=== PATIENT | female | born 1945 | race Caucasian/White ===

== ENCOUNTER → 2016-10-04 | Outpatient (CLI) | payer OTHER | LOC: GMAB 17:13 | PROVIDERS: ATTEND Family Medicine | DX: L03.116 Cellulitis of left lower limb (principal); S81.832A Puncture wound without foreign body, left lower leg, initial encounter ==

== ENCOUNTER → 2016-10-11 | Outpatient (CLI) | payer OTHER ==
--- NOTE | 2016-10-11 14:47 | RAD ---
EXAM DESCRIPTION: XR KNEE 4 OR MORE VIEWS CLINICAL HISTORY: 70 y/o ,F, PAIN IN LEFT KNEE COMPARISON: None. IMPRESSION: Tricompartment degenerative change with joint space loss and osteophyte formation noted. This is most pronounced within the medial compartment of left knee. Negative for fracture. Small joint effusion noted period Electronically signed by: Marko Worthington MD 10/11/2016 14:45
--- NOTE | 2016-10-12 09:43 | RAD ---
EXAM DESCRIPTION: Pelvis series. CLINICAL HISTORY: Pelvic pain. COMPARISON: August 11, 2016. TECHNIQUE: One view was submitted for evaluation. FINDINGS: Degenerative change of the pubic symphysis and lumbar spine. No fracture, dislocation, or radiopaque foreign body is seen. Pelvic ring appears intact. Soft tissues are unremarkable. IMPRESSION: Symmetrical joint spaces within bilateral hips. No definitive evidence of osseous degenerative change of bilateral hips. Electronically signed by: Marko Worthington MD 10/12/2016 09:41
== END | disposition home or self-care (01) ==
LOC: RAD 13:49
PROVIDERS: ATTEND Orthopaedic Surgery
DX: M25.562 Pain in left knee (principal); M25.551 Pain in right hip

== ENCOUNTER → 2016-10-31 | Outpatient (CLI) | payer OTHER | END | disposition home or self-care (01) | LOC: LAB.O 15:10 | PROVIDERS: ATTEND Orthopaedic Surgery | DX: Z01.818 Encounter for other preprocedural examination (principal) ==

== ENCOUNTER 2016-12-28 05:29 | Inpatient (IN) | payer OTHER ==
--- NOTE | 2016-11-14 08:38 | HP ---
CHIEF COMPLAINT: Left knee pain. HISTORY OF PRESENT ILLNESS: Ms. Henry is a 70-year-old female with a history of left knee pain that has been going on for a very long time. Ms. Henry has had right total knee replacement and has had successful results with that. To that end, she would like to pursue left total knee replacement. After discussing the risks, benefits and alternatives to that with her, the patient has given informed consent. She has attempted multiple conservative measures, she has failed to gain relief with those measures. PAST SURGICAL HISTORY: 1. Knee replacement. 2. section. CODE STATUS: Full code. IMMUNIZATIONS: Up to date. SOCIAL HISTORY: The patient does not drink, smoke or use any illicit drugs at this time. FAMILY HISTORY: None pertinent to today's complaint. REVIEW OF SYSTEMS: Negative except as indicated in the History of Present Illness. PHYSICAL EXAMINATION: VITAL SIGNS: Blood pressure 170/90. Pulse 66. Height 5'8". Weight 218. MENTAL STATUS: The patient is awake, alert, and is able to give a good history and participate in the physical. The patient is oriented to person, place and time. SKIN: Normal tone and turgor. HEENT: Normocephalic, atraumatic. Pupils equal, round and reactive. Mucosal membranes are moist. NECK: Normal range of motion. No thyromegaly, no lymphadenopathy. CHEST: Normal respiratory excursion. CARDIAC: Regular rate and rhythm. No murmurs, rubs or gallops. MUSCULOSKELETAL: The bilateral upper extremities show full active range of motion without significant pain. She has intact sensation in the extremities and they are warm and well perfused. She maintains 5/5 strength throughout. The right lower extremity shows a well-healed scar anteriorly. She has intact sensation. It is warm and well perfused. There is no ligamentous laxity. The left lower extremity shows severe pain with palpation of the knee joint. Sensation is intact. It is warm and well perfused. She has no swelling. There is no evidence of laxity. There is minor crepitus. She has no obvious effusion at this time. IMAGING: X-rays show severe arthritis of the knee. ASSESSMENT: 1. Arthritis. PLAN: At this point, given her failure of conservative measures and the severity of her arthritis, we discussed options which for her would include a total knee arthroplasty. She has elected to undergo total knee arthroplasty. We have discussed the risks, benefits and alternatives to that and she has given informed consent for that. #[id number] [facility]
--- NOTE | 2016-12-27 12:28 | HP ---
CHIEF COMPLAINT: Left knee pain. HISTORY OF PRESENT ILLNESS: Ms. Henry is a 70-year-old female with a history of pain in the left knee that has been going on for a very long time and getting worse over the past years. She has had right total knee replacement and is requesting left total knee replacement. After discussing the risks, benefits and alternatives to that, the patient has given informed consent. Ms. Henry has failed conservative measures. Her conservative measures have included injections, physical therapy, assistive devices, and activity modifications. PAST SURGICAL HISTORY: 1. Knee replacement. 2. section. CODE STATUS: Full code. IMMUNIZATIONS: Up to date. SOCIAL HISTORY: The patient does not drink, smoke or use any illicit drugs. FAMILY HISTORY: None pertinent to today's complaint. REVIEW OF SYSTEMS: Negative except as indicated in the History of Present Illness. PHYSICAL EXAMINATION: VITAL SIGNS: Blood pressure 170/90. Pulse 66. Height 5'8". Weight 218. MENTAL STATUS: The patient is awake, alert, and is able to give a good history and participate in the physical. The patient is oriented to person, place and time. SKIN: Normal tone and turgor. HEENT: Normocephalic, atraumatic. Pupils equal, round and reactive. Mucosal membranes are moist. NECK: Normal range of motion. No thyromegaly, no lymphadenopathy. CHEST: Normal respiratory excursion. CARDIAC: Regular rate and rhythm. No murmurs, rubs or gallops. MUSCULOSKELETAL: Bilateral upper extremities show full active range of motion without pain. She has intact sensation. The extremities are warm and well perfused. There is no crepitus and no deformity. Strength is 5/5. The right lower extremity shows well-healed scar anteriorly. She has intact sensation throughout. There is no varus/valgus or anterior/posterior laxity. She has full extension with flexion to about 115 degrees. The left lower extremity shows severe pain with palpation. She has intact sensation throughout. It is warm and well perfused. Strength is 5/5. She has near full extension and flexion to about 105 degrees with crepitus throughout her range of motion. IMAGING: X-rays show advanced arthritis. ASSESSMENT: 1. Osteoarthritis. PLAN: The plan at this point is for total knee arthroplasty. We have discussed the risks, benefits, and alternatives to that and the patient has given informed consent. #[id number] [facility]
[2016-12-28] MEDS ORDERED: TRANEXAMIC ACID 1,000 MG/10 ML VIAL ONE ×2 (06:39)
[2016-12-28] MEDS ORDERED: LACTATED RINGERS 1,000 ML ONE ×2 (06:40→08:45)
[2016-12-28] MEDS ORDERED: ceFAZolin SODIUM 1 GM VIAL ONE ×4 (06:40→20:06)
[2016-12-28] MEDS ORDERED: SODIUM CHL 0.9% 100ML MINI-BAG 100 ML IVPB ONE ×2 (06:41→07:28)
[2016-12-28] MEDS ORDERED: VANCOMYCIN HCL INJ 1,000 MG VIAL IVPB ONE ×4 (06:48→20:06)
[2016-12-28] MEDS ORDERED: SODIUM CHLORIDE 0.9% 250ML 250 ML ONE ×2 (06:48→20:05)
[2016-12-28] MEDS ORDERED: SODIUM CHLORIDE 0.9% 10 ML VIAL ONE (06:49)
[2016-12-28] MEDS ORDERED: MORPHINE SULF *EPIDURAL* 1 MG/ML VIAL ONE (08:44)
[2016-12-28] MEDS ORDERED: LABETALOL 200 MG TAB ONE (09:00)
[2016-12-28] MEDS ORDERED: NITROGLYCERIN 2% 1 GM UD TOP ONE (09:00)
[2016-12-28] MEDS ORDERED: PROPOFOL 200 MG/20 ML VIAL IV ONE (09:00)
[2016-12-28] MEDS ORDERED: TRANEXAMIC ACID 1,000 MG/10 ML VIAL IV ONE (09:40)
[2016-12-28] MEDS ORDERED: BUPIVACAINE 0.25% W/EPI 50 ML VIAL INJ ONE (09:48)
[2016-12-28] MEDS ORDERED: [UNRECOGNIZED DRUG - MIXTURE] IVPB SCH (12:30)
[2016-12-28] MEDS ORDERED: HYDROmorphone PCA 0.2 MG/ML 1 BAG BAG IVPB SCH (12:30)
[2016-12-28] MEDS ORDERED: HYDROmorphone PCA 0.2 MG/ML 1 BAG BAG IVPB ONE (12:37)
[2016-12-28] MEDS ORDERED: MORPHINE SULFATE INJ 10 MG/ML VIAL IV PRN (12:53)
[2016-12-28] MEDS ORDERED: NALOXONE HCL INJ 0.4 MG/ML VIAL IV PRN (12:53)
[2016-12-28] MEDS ORDERED: PROMETHAZINE HCL INJ 12.5 MG in SODIUM CHLORIDE 0.9% 50ML 50 ML IVPB PRN (12:53)
[2016-12-28] MEDS ORDERED: ALUMINUM & MAGNESIUM HYDROXIDE 30 ML UD PO PRN (12:53)
[2016-12-28] MEDS ORDERED: ZOLPIDEM TARTRATE 5 MG TAB PO PRN (12:53)
[2016-12-28] MEDS ORDERED: PROMETHAZINE HCL INJ 25 MG in SODIUM CHLORIDE 0.9% 50ML 50 ML IVPB PRN (12:53)
[2016-12-28] MEDS ORDERED: MAGNESIUM HYDROXIDE 30 ML UD PO PRN (12:53)
[2016-12-28] MEDS ORDERED: TRANEXAMIC ACID INJ 1,000 MG in SODIUM CHLORIDE 0.9% 100ML 100 ML IVPB ONE (12:53)
[2016-12-28] MEDS ORDERED: TEMAZEPAM 15 MG CAP PO PRN (12:53)
[2016-12-28] MEDS ORDERED: ONDANSETRON INJ 4 MG/2 ML VIAL IV PRN (12:53)
[2016-12-28] MEDS ORDERED: ACETAMINOPHEN 325 MG TAB PO PRN (12:53)
[2016-12-28] MEDS ORDERED: BISACODYL SUPPOSITORY 10 MG PR PRN (12:53)
[2016-12-28] MEDS ORDERED: MORPHINE SULFATE INJ 10 MG/ML VIAL IM PRN (12:53)
[2016-12-28] MEDS ORDERED: SODIUM CHLORIDE 0.9% (FLUSH) 10 ML SYG IV PRN (12:53)
[2016-12-28] MEDS ORDERED: BENZOCAINE-MENTH LOZ (CEPACOL) 1 EA LOZ MT PRN (12:53)
[2016-12-28] MEDS ORDERED: ACETAMINOPHEN 500 MG TAB PO PRN (12:53)
[2016-12-28] MEDS ORDERED: MORPHINE PCA 1 MG/ML 100ML 1 BAG in PREMIX BAG 1 BAG IVPB SCH (13:00)
[2016-12-28] MEDS: DEX 5% W/NACL 0.45% 1000ML 1,000 ML IVS PRN ×2 (13:45→20:18)
[2016-12-28] MEDS: IV SET AND CAP CHANGE INJ INJ SCH (15:00)
[2016-12-28] MEDS ORDERED: SODIUM CHLORIDE 0.9% 100ML 100 ML IVPB ONE ×2 (20:03→20:06)
[2016-12-28] MEDS ORDERED: ENOXAPARIN SODIUM 30 MG/0.3 ML SYG SUBCU ONE (20:06)
[2016-12-28] MEDS: ceFAZolin SODIUM 2 GM in SODIUM CHLORIDE 0.9% 100ML 100 ML IVPB SCH (20:15)
[2016-12-28] MEDS: CYCLOBENZAPRINE HCL 10 MG TAB PO PRN (20:15)
[2016-12-28] MEDS: DOCUSATE CALCIUM 240 MG CAP PO SCH (20:37)
--- NOTE | 2016-12-28 20:50 | CONS ---
DATE OF CONSULTATION: 12/28/16 SUPERVISING PHYSICIAN: Eder Sharma M.D. HISTORY OF PRESENT ILLNESS: Ms. Henry is a 70 year-old female with a long history of left knee pain that has been progressively worsening over the last several years. She previously had a right total knee replacement and requested that a left total knee replacement be performed by Dr. Mustafa. She has had multiple outpatient conservative measures taken such as injections, physical therapy, assistive devices and activity modification, however failed to respond to those conservative measures and now requires surgical intervention to help control her pain. 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 The patient was seen immediately postoperative of total left knee arthroplasty. The patient was seen in stable condition. PAST MEDICAL HISTORY: 1. Hypertension. 2. Gastroesophageal reflux disease. 3. Seasonal allergies. 4. Hypertrophic obstructive cardiomyopathy with no congestive heart failure with a history of 2/6 systolic ejection murmur currently followed by her chief business officer, Dr. Rowe. PAST SURGICAL HISTORY: 1. Right total knee arthroplasty on 04/10/15. 2. section. 3. Last echocardiogram on 01/01/15 showed grade 1 diastolic dysfunction secondary to hypertrophic cardiomyopathy with an ejection fraction of 60%. CURRENT MEDICATIONS: 1. Metoprolol succinate 125 mg b.i.d. 2. Neurontin 300 mg at bedtime. 3. Lasix 20 mg daily. ALLERGIES: MERBROMIN, MERCURIC IODIDE AND RED DYE. FAMILY HISTORY: Coronary artery disease and chronic obstructive pulmonary disease. 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 She lives in [place], [place] at [facility]. She denies any history of tobacco abuse and drinks on a rare occasion. Denies any illicit drug use. PHYSICAL EXAMINATION: VITAL SIGNS: Temperature 96.6, pulse 61, blood pressure 187/76, respirations 18 , satting 95% on room air. Admission weight 100.7 kg. GENERAL: The patient is alert. Appears to be in no distress. HEENT: Tympanic membranes are clear bilaterally. Oropharynx is pink and moist without any lesions. NECK: Supple with normal range of motion. No jugular venous distention was noted. CHEST: Lungs are clear to auscultation, just slightly diminished towards the bases. No rhonchi, wheezing or rales noted. HEART: Regular rate and rhythm with a 2/6 systolic murmur. ABDOMEN: Obese but soft, non-tender. Positive bowel sounds. EXTREMITIES: Status post left knee arthroplasty with a dressing in place. No edema is noted. Pulses distally are strong with capillary refill brisk. NEUROLOGIC: She is alert and oriented times three. LABORATORY: Preoperative H&H was 13.4 and 40.5, platelet count 168,000. Chemistries showed just a slightly low potassium of 3.4, otherwise electrolytes were within normal limits. BUN 16, creatinine 0.68. ASSESSMENT: 1. Postoperative day zero left total knee arthroplasty with the patient having a significant history of osteoarthritis having failed to respond to outpatient treatment plan and conservative measures now requiring operative intervention for symptom control. 2. Hypertension. 3. History of gastroesophageal reflux disease. 4. History of hypertrophic cardiomyopathy with a systolic murmur with last echocardiogram on 01/11/15 showing an ejection fraction of 60%. PLAN: The patient will be followed closely along with Physical Therapy and orthopedic services with Dr. Rivera Mustafa. Will continue to monitor the patient closely in regards to her home medications and hypertension. Will assist with pain management as needed. Will resume her home medications in the morning once they have been updated and verified, and she will be on DVT prophylaxis as per protocol. Will anticipate discharge in 2 to 3 days possibly with ultimate discharge planning at the decision from Physical Therapy and Dr. Mustafa once the patient has met set goals. Until discharge, will continue to monitor the patient closely and treat appropriately. #[id number] [facility]
[2016-12-28] MEDS: VANCOMYCIN HCL INJ 1,000 MG in SODIUM CHLORIDE 0.9% 250ML 250 ML IVPB SCH (21:56)
[2016-12-28] MEDS: HYDROcodone 5MG/APAP 325MG 1 EA TAB PO PRN (23:57)
[2016-12-29] MEDS: ENOXAPARIN SODIUM 30 MG/0.3 ML SYG SUBCU SCH ×2 (01:38→14:31)
[2016-12-29] MEDS: ceFAZolin SODIUM 2 GM in SODIUM CHLORIDE 0.9% 100ML 100 ML IVPB SCH ×2 (04:06→12:18)
[2016-12-29] MEDS ORDERED: MORPHINE PCA 1 MG/ML 100 ML BAG IVPB SCH (08:00)
[2016-12-29] MEDS: HYDROcodone 5MG/APAP 325MG 1 EA TAB PO PRN ×3 (08:18→20:03)
[2016-12-29] MEDS ORDERED: VANCOMYCIN HCL INJ 1,000 MG VIAL IVPB ONE (08:54)
[2016-12-29] MEDS ORDERED: SODIUM CHLORIDE 0.9% 250ML 250 ML ONE (08:54)
[2016-12-29] MEDS: MAGNESIUM OXIDE 400 MG TAB PO SCH (09:26)
[2016-12-29] MEDS: VANCOMYCIN HCL INJ 1,000 MG in SODIUM CHLORIDE 0.9% 250ML 250 ML IVPB SCH (09:58)
--- NOTE | 2016-12-29 10:09 | PCM.CORE ---
Physician DVT/VTE - Prophylaxis Currently: Patient already on anticoagulation therapy - Nurse DVT Assessment & Total Each Risk Factor Represents 5 Points: Elective Arthtroplasty Each Risk Factor Represents 2 Points: Age 60-74 Each Risk Factor Represents 1 Point: Medical PT at Bed Rest Each Risk Factor is 1 Point: Obesity (BMI >25) DVT Assessment Score: 9 - 5 or more Very High Risk Treatments: Early Ambulation *, Sequential Compression Device Pharmacological: Enoxaparin 30mg SQ BID
[2016-12-29] MEDS ORDERED: METOPROLOL SUCCINATE XL 25 MG TAB PO SCH (10:30)
--- NOTE | 2016-12-29 10:46 | OP ---
DATE OF PROCEDURE: 12/28/16 PREOPERATIVE DIAGNOSIS: 1. Left knee arthritis. POSTOPERATIVE DIAGNOSIS: 1. Left knee arthritis. PROCEDURE: 1. Left total knee arthroplasty. SURGEON: Rivera Mustafa MD. TREATER HELPER: Erick Robertson CST, SA-C. ANESTHESIA: General. COMPLICATIONS: None. FINDINGS: Severe arthritis. INDICATION: Ms. Henry has a long history of severe knee pain that has been getting progressively worse. Ms. Henry has had conservative measures, however, has failed to gain relief. Because of her ongoing pain, she has requested operative intervention. After discussing the risks, benefits and alternatives to that, the patient has given informed consent for total knee arthroplasty. PROCEDURE: The patient was brought to the Operating Room and placed in supine position. General anesthesia was induced and the patient's leg was sterilely prepped and draped. Following prepping and draping, the distal femur was exposed and using an intramedullary guide, the distal femoral cut was made. The appropriate sized cutting block was measured, pinned into place, and the anterior, posterior, and chamfer cuts were made. The ACL was transected and the tibia was subluxed. Both the medial and lateral menisci were removed. An intramedullary guide was used to make the proximal tibial cut. The appropriate sized base plate was placed and a trial polyethylene was placed. The trial femur was placed, the knee was reduced, and the knee was taken through a range of motion. The knee was stable in anterior, posterior, varus and valgus stress. The patella tracked anatomically without evidence of subluxation or dislocation. After trialing, the trial components were removed and the bony surfaces were thoroughly irrigated with saline. Following irrigation, the surfaces were dried and the final components were cemented into place. The excess cement was removed and the remaining cement was allowed to cure. The knee was again taken through a range of motion to confirm stability. The wound was then irrigated with saline and closure was performed using PDS to approximate the arthrotomy followed by closure of the subcutaneous tissues with a combination of running and interrupted Monocryl sutures. Sterile dressing was placed. The patient was awoken from anesthesia and taken to Recovery. POSTOPERATIVE INSTRUCTIONS: The patient will be weight-bearing as tolerated on postoperative day 1. COMPONENTS: OpenLabel Triathlon knee, size 6 femur, size 5 tibia, 9 mm insert. #[id number] [facility]
[2016-12-29] MEDS: FUROSEMIDE 40 MG TAB PO SCH (11:01)
[2016-12-29] MEDS ORDERED: SODIUM CHLORIDE 0.9% 100ML 100 ML IVPB ONE (11:27)
[2016-12-29] MEDS ORDERED: ceFAZolin SODIUM 1 GM VIAL ONE (11:27)
--- NOTE | 2016-12-29 13:25 | RAD ---
EXAM DESCRIPTION: Knee,Left 2 or More Views CLINICAL HISTORY: 71 years Female, TKA IMPRESSION: 2 views of the left knee are compared to October 11, 2016. Postsurgical changes overlying the left knee noted. Total knee arthroplasty. Hardware is appropriately positioned with no evidence of associated fracture or hardware failure. Electronically signed by: Marko Worthington MD 12/29/2016 1:20 PM CDT
[2016-12-29] MEDS: DEX 5% W/NACL 0.45% 1000ML 1,000 ML IVS PRN (18:08)
--- NOTE | 2016-12-29 19:43 | PN ---
DATE: 12/29/16 SUPERVISING PHYSICIAN: Eder Sharma M.D. SUBJECTIVE: The patient said she had some issues with pain last night but it has been better controlled this morning after her pain regimen was changed from Dilaudid to morphine. She did have some nausea through the night but had no active emesis. She remains afebrile. She is actually sitting in the bedside chair and said she is feeling a little bit better in regards to the pain level. OBJECTIVE: VITAL SIGNS: T max 99.4, pulse 74, blood pressure 112/66, respirations 16, O2 95% on room air. I's and O's show a positive balance of 1285 with 2510 in, 1225 out. Weight 100.7 kg. CHEST: Lungs are clear to auscultation bilaterally. HEART: Regular rate and rhythm. ABDOMEN: Soft, non- tender. Positive bowel sounds. EXTREMITIES: Left knee has a surgical dressing in place that is clean and dry. Distally pulses are strong. Capillary refill is brisk. NEUROLOGIC: She is alert and oriented times three. LABORATORY: H&H shows 10.7 hemoglobin and 32.3 hematocrit. ASSESSMENT: 1. Postoperative day 1 total left knee arthroplasty with the patient having significant history of osteoarthritis having failed to respond to outpatient treatment plan and conservative measures requiring operative intervention for symptom control. 2. Hypertension. 3. History of gastroesophageal reflux disease. 4. History of hypertrophic cardiomyopathy with a systolic murmur, chronic with last echocardiogram on 01/11/15 showing an ejection fraction of 60%. PLAN: Will continue to follow the patient closely as she progresses through her physical therapy under the direction of Physical Therapy department and orthopedic services with Dr. Rivera Mustafa. Her home medications have been resumed. Will monitor her blood pressure closely and continue with management of pain as needed. She was already started on DVT prophylaxis. Will anticipate discharge at the discretion of Physical as the patient progresses through her set goals. Until then, will continue to monitor the patient closely and treat appropriately. #[id number] [facility]
[2016-12-29] MEDS ORDERED: METOPROLOL SUCCINATE XL 100 MG TAB PO ONE (20:00)
[2016-12-29] MEDS ORDERED: METOPROLOL SUCCINATE XL 25 MG TAB PO ONE (20:00)
[2016-12-29] MEDS ORDERED: GABAPENTIN 300 MG CAP ONE (20:01)
[2016-12-29] MEDS: CYCLOBENZAPRINE HCL 10 MG TAB PO PRN (20:03)
[2016-12-29] MEDS: GABAPENTIN 300 MG CAP PO SCH (20:46)
[2016-12-29] MEDS: DOCUSATE CALCIUM 240 MG CAP PO SCH (20:47)
[2016-12-29] MEDS: METOPROLOL SUCCINATE 100 MG, METOPROLOL SUCCINATE 25 MG PO SCH ×2 (20:47)
[2016-12-29] MEDS ORDERED: IBUPROFEN 400 MG TAB PO PRN (21:25)
[2016-12-30] MEDS: ENOXAPARIN SODIUM 30 MG/0.3 ML SYG SUBCU SCH ×2 (01:50→13:52)
[2016-12-30] MEDS: FUROSEMIDE 40 MG TAB PO SCH (06:49)
[2016-12-30] MEDS: HYDROcodone 5MG/APAP 325MG 1 EA TAB PO PRN ×3 (06:49→18:40)
--- NOTE | 2016-12-30 07:59 | PN ---
DATE: 12-29-16 SUBJECTIVE: Ms. Henry had some nausea overnight, that has seemed to clear up this morning. At this point, she is doing relatively from a subjective standpoint. OBJECTIVE: She is afebrile. Vital signs are stable. Dressing is clean, dry and intact. ASSESSMENT: Status post total knee arthroplasty. PLAN: Begin physical therapy for weightbearing as tolerated today. #[id number] [facility]
[2016-12-30] MEDS ORDERED: METOPROLOL SUCCINATE XL 100 MG TAB PO ONE ×2 (08:25→20:37)
[2016-12-30] MEDS ORDERED: METOPROLOL SUCCINATE XL 25 MG TAB PO ONE ×2 (08:26→20:38)
[2016-12-30] MEDS: METOPROLOL SUCCINATE 100 MG, METOPROLOL SUCCINATE 25 MG PO SCH ×4 (08:36→20:56)
[2016-12-30] MEDS: MAGNESIUM OXIDE 400 MG TAB PO SCH (08:36)
[2016-12-30] MEDS: CYCLOBENZAPRINE HCL 10 MG TAB PO PRN (08:36)
[2016-12-30] MEDS: SODIUM CHLORIDE 0.9% (FLUSH) 10 ML SYG IV SCH ×2 (08:37→20:57)
--- NOTE | 2016-12-30 19:43 | PN ---
DATE: 12/30/16 SUPERVISING PHYSICIAN: Osvaldo Mcgrath M.D. SUBJECTIVE: The patient is resting in bed in her CPM. She says her pain is much better controlled today although she is very hesitant and feels weak at times. She remains afebrile. She has not had any nausea. She is tolerating her diet. OBJECTIVE: VITAL SIGNS: T max 98.9, pulse 80, blood pressure 131/82, respirations 20, satting 95% on room air. I's and O's show a positive balance of 1962 with 2387 in, 425 out. She has had 1 bowel movement. Weight is 100.7 kg. CHEST: Lungs are clear to auscultation bilaterally. HEART: Regular rate and rhythm. ABDOMEN: Soft, non-tender. Positive bowel sounds. EXTREMITIES: Left knee has a surgical dressing in place and is clean and dry. There is minimal erythema. There is minimal swelling. Pulses distally are strong with capillary refill brisk. NEUROLOGIC: She is alert and oriented times three. ASSESSMENT: 1. Postoperative day 2 total left knee arthroplasty with the patient having significant history of arthritis having failed to respond to outpatient treatment plan and conservative measures requiring operative intervention for symptom control. 2. Hypertension. 3. History of gastroesophageal reflux disease. 4. History of hypertrophic cardiomyopathy with systolic murmur, chronic with last echocardiogram on 01/11/15 showing ejection fraction of 60% PLAN: Will continue to monitor the patient as she progresses through her physical therapy in efforts to meet her goals. She does have arrangements for Home Health. Anticipate hopefully discharge to continue with [place] at home on either Monday or Monday of this coming week. Will continue with encouraging deep breathing exercises and closely monitor until the patient is able to be discharged. #[id number] [facility]
[2016-12-30] MEDS ORDERED: HYDROcodone 7.5MG/APAP 325MG 1 EA TAB PO PRN (20:00)
[2016-12-30] MEDS: GABAPENTIN 300 MG CAP PO SCH (20:56)
[2016-12-30] MEDS: DOCUSATE CALCIUM 240 MG CAP PO SCH (20:56)
[2016-12-30] MEDS ORDERED: HYDROcodone 7.5MG/APAP 325MG 1 EA TAB ONE (23:34)
[2016-12-30] MEDS: HYDROcodone 7.5MG/APAP 325MG 1 EA TAB PO PRN (23:35)
[2016-12-31] MEDS: ENOXAPARIN SODIUM 30 MG/0.3 ML SYG SUBCU SCH ×2 (01:59→14:00)
[2016-12-31] MEDS ORDERED: HYDROcodone 7.5MG/APAP 325MG 1 EA TAB ONE (06:13)
[2016-12-31] MEDS: FUROSEMIDE 40 MG TAB PO SCH (06:14)
[2016-12-31] MEDS: HYDROcodone 7.5MG/APAP 325MG 1 EA TAB PO PRN ×3 (06:15→20:42)
[2016-12-31] MEDS ORDERED: METOPROLOL SUCCINATE XL 25 MG TAB PO ONE ×2 (08:03→19:23)
[2016-12-31] MEDS ORDERED: METOPROLOL SUCCINATE XL 100 MG TAB PO ONE ×2 (08:03→19:23)
[2016-12-31] MEDS: SODIUM CHLORIDE 0.9% (FLUSH) 10 ML SYG IV SCH ×2 (08:33→21:00)
[2016-12-31] MEDS: MAGNESIUM OXIDE 400 MG TAB PO SCH (08:45)
[2016-12-31] MEDS: METOPROLOL SUCCINATE 100 MG, METOPROLOL SUCCINATE 25 MG PO SCH ×4 (08:45→20:43)
--- NOTE | 2016-12-31 12:39 | PN ---
DATE: 12/30/16 SUBJECTIVE: Rhianna is subjectively doing well. She has walked about 50 feet. OBJECTIVE: She is afebrile. Vital signs are stable. Wound is clean. There are no signs or symptoms of infection. ASSESSMENT: 1. Status post total knee arthroplasty. PLAN: The plan at this point is for her to continue on weightbearing as tolerated as well as her CPM. #[id number] [facility]
--- NOTE | 2016-12-31 12:46 | PN ---
DATE: 12/31/16 SUBJECTIVE: Rhianna is doing well subjectively and has no significant complaints. OBJECTIVE: Afebrile. Vital signs are stable. Wound is clean. There are no signs or symptoms of infection. ASSESSMENT: 1. Status post total knee arthroplasty. PLAN: Rhianna will be continuing physical therapy and will likely be discharged in 2 days. #[id number] [facility]
[2016-12-31] MEDS: IV SET AND CAP CHANGE INJ INJ SCH (14:00)
--- NOTE | 2016-12-31 19:17 | PN ---
DATE: 12/31/16 SUPERVISING PHYSICIAN: Osvaldo Mcgrath M.D. SUBJECTIVE: The patient is doing well. She is resting in bed on the CPM. She notes that her pain has been controlled with p.o. medication. She did run a low -grade fever in the last 12 hours. Denies any nausea, vomiting or diarrhea. OBJECTIVE: VITAL SIGNS: T max 100.3, pulse 72, blood pressure 141/71, respirations 17, satting 97% on room air. CHEST: Lungs are clear to auscultation bilaterally. HEART: Regular rate and rhythm. ABDOMEN: Soft, non- tender. Positive bowel sounds. EXTREMITIES: No clubbing, cyanosis or edema. Left knee has a dressing in place. It is clean and dry. There are no obvious signs of infection. Pulses distally are strong with capillary refill being brisk. NEUROLOGIC: She is alert and oriented times three. ASSESSMENT: 1. Postoperative day 3 of left total knee arthroplasty with the patient having significant history of arthritis having failed to respond to outpatient treatment plan and conservative measures requiring operative intervention for symptom control. 2. Hypertension. 3. History of gastroesophageal reflux disease. 4. History of hypertrophic cardiomyopathy with systolic murmur, chronic with last echocardiogram on 01/11/17 showing ejection fraction of 60%. PLAN: Will continue to monitor the patient as she progressed through her rehabilitation efforts. Anticipate discharge this coming Monday and arrangements for Home Health have been made with [facility]. Will continue to monitor the patient closely and encourage her to do her deep breathing exercises. Until discharge will treat appropriately. #[id number] [facility]
[2016-12-31] MEDS: GABAPENTIN 300 MG CAP PO SCH (20:43)
[2016-12-31] MEDS: DOCUSATE CALCIUM 240 MG CAP PO SCH (20:43)
[2016-12-31] MEDS ORDERED: MAGNESIUM HYDROXIDE 30 ML UD PO ONE (21:00)
[2016-12-31] MEDS ORDERED: BISACODYL SUPPOSITORY 10 MG PR ONE (21:00)
[2017-01-01] MEDS: ENOXAPARIN SODIUM 30 MG/0.3 ML SYG SUBCU SCH ×2 (01:15→14:03)
[2017-01-01] MEDS: FUROSEMIDE 40 MG TAB PO SCH (06:31)
[2017-01-01] MEDS: HYDROcodone 7.5MG/APAP 325MG 1 EA TAB PO PRN ×3 (07:35→21:04)
[2017-01-01] MEDS ORDERED: METOPROLOL SUCCINATE XL 25 MG TAB PO ONE ×2 (07:52→20:01)
[2017-01-01] MEDS ORDERED: METOPROLOL SUCCINATE XL 100 MG TAB PO ONE ×2 (07:52→20:01)
[2017-01-01] MEDS: METOPROLOL SUCCINATE 100 MG, METOPROLOL SUCCINATE 25 MG PO SCH ×4 (09:23→21:05)
[2017-01-01] MEDS: CYCLOBENZAPRINE HCL 10 MG TAB PO PRN (09:24)
[2017-01-01] MEDS: MAGNESIUM OXIDE 400 MG TAB PO SCH (09:24)
[2017-01-01] MEDS: SODIUM CHLORIDE 0.9% (FLUSH) 10 ML SYG IV SCH ×2 (09:25→21:05)
--- NOTE | 2017-01-01 18:37 | PN ---
DATE: 01/01/17 SUPERVISING PHYSICIAN: Osvaldo Mcgrath M.D. SUBJECTIVE: The patient continues to progress well. Her pain is better controlled now. She is sitting in the bedside chair. She has continued to run less fevers over the last 24 hours with a T max of 100.9. OBJECTIVE: VITAL SIGNS: T max 100.9, pulse 65, blood pressure 135/80, respirations 18, O2 sat 99% on room air. I's and O's show a positive balance of 250 with 1950 in, 1700 out. She has had 1 bowel movement. Weight 100.7 kg. CHEST: Clear to auscultation bilaterally. HEART: Regular rate and rhythm. ABDOMEN: Soft, non-tender. Positive bowel sounds. EXTREMITIES: No clubbing, cyanosis or edema. Left knee has a dressing in place that is clean and dry. There are no signs of infection. Distally pulses are strong with capillary refill brisk. NEUROLOGIC: She is alert and oriented times three. ASSESSMENT: 1. Postoperative day 4 left total knee arthroplasty with the patient having significant history of arthritis and failed to respond to outpatient treatment plan and conservative measures requiring operative intervention for symptom control. 2. Hypertension. 3. History of gastroesophageal reflux disease. 4. History of hypertrophic cardiomyopathy with a systolic murmur, chronic with last echocardiogram on 01/11/17 showing an ejection fraction of 60%. PLAN: Will continue to follow the patient with Physical Therapy. Anticipation of maybe discharging Monday. She has arrangements for Home Health through [facility] once discharged. Until discharge, will continue to monitor and treat appropriately. #[id number] [facility]
[2017-01-01] MEDS: DOCUSATE CALCIUM 240 MG CAP PO SCH (21:05)
[2017-01-01] MEDS: GABAPENTIN 300 MG CAP PO SCH (21:05)
[2017-01-02] MEDS: ENOXAPARIN SODIUM 30 MG/0.3 ML SYG SUBCU SCH ×2 (01:46→14:00)
[2017-01-02] MEDS: CYCLOBENZAPRINE HCL 10 MG TAB PO PRN (05:58)
[2017-01-02] MEDS: FUROSEMIDE 40 MG TAB PO SCH (06:30)
[2017-01-02] MEDS ORDERED: METOPROLOL SUCCINATE XL 25 MG TAB PO ONE (07:50)
[2017-01-02] MEDS ORDERED: METOPROLOL SUCCINATE XL 100 MG TAB PO ONE (07:50)
--- NOTE | 2017-01-02 08:17 | PN ---
DATE: 01/02/17 SUBJECTIVE: Rhianna is doing better today. Her appetite is improving. OBJECTIVE: Afebrile. Vital signs stable. Wound is clean. There are no signs or symptoms of infection. ASSESSMENT: Status post total knee arthroplasty. PLAN: The plan at this point is to continue with weight-bearing as tolerated. Hopefully, we will have her home with home health today. #[id number] [facility]
[2017-01-02] MEDS: SODIUM CHLORIDE 0.9% (FLUSH) 10 ML SYG IV SCH (08:34)
[2017-01-02] MEDS: MAGNESIUM OXIDE 400 MG TAB PO SCH (08:34)
[2017-01-02] MEDS: METOPROLOL SUCCINATE 100 MG, METOPROLOL SUCCINATE 25 MG PO SCH ×2 (08:34)
[2017-01-02] MEDS: HYDROcodone 7.5MG/APAP 325MG 1 EA TAB PO PRN ×2 (08:42→16:34)
[2017-01-02 14:36] VITALS: O2SAT 98
[2017-01-02 14:37] VITALS: BP 135/83; TEMP 97.6
--- NOTE | 2017-01-17 13:40 | DS ---
SUPERVISING PHYSICIAN: Osvaldo Mcgrath MD DISCHARGE DIAGNOSIS: 1. Postoperative day 4 left total knee arthroplasty with the patient having significant history of arthritis and having failed to respond to outpatient treatment plan and conservative measures requiring operative intervention for symptom control now requiring an extension of her physical therapy efforts through Swing Bed admission with Swing Bed day 1 today on admission. 2. Hypertension. 3. Gastroesophageal reflux disease. 4. History of hypertrophic cardiomyopathy with a systolic murmur, chronic with last echocardiogram noted to be on 01/11/17 with an ejection fraction estimated at 60%. HISTORY OF PRESENT ILLNESS: Ms. Henry is a 71 year-old female patient that has a longstanding history of left knee pain that has been progressively worsening over the last several years. 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 Rivera Mustafa. She had had multiple attempts at outpatient conservative treatment measures such as injections, physical therapy, assistive devices and activity modification but has failed to respond to any conservative measures, thus surgical intervention was requested to help control her pain. The patient was followed in the postoperative phase and progressed fairly well through her physical therapy efforts, but continues to need aggressive physical therapy and reconditioning to ensure that she is able to function safely at home once discharged, therefore she is going to be admitted to Swing Bed for continuation of her physical therapy. LABORATORY: No laboratory or x-ray studies on admission to Swing Bed. Her postoperative H&H during Acute Care showed hemoglobin 10.7, hematocrit 32.3. Will plan to repeat a hemoglobin on admission to Swing Bed. HOSPITAL COURSE: PLAN: The patient will be admitted to Swing Bed today. Will continue to follow the patient closely along with orthopedic services and Physical Therapy as she progresses through continued physical therapy for reconditioning. Will continue to monitor the patient medically in regards to her hypertension. She will be started on Xarelto as per orthopedic protocol for knee replacement. Will anticipate her length of stay to be 3 to 7 days with anticipated discharge at this point this coming Monday. Until then, will continue to monitor the patient closely and treat appropriately. [facility]
== END 2017-01-02 17:02 | disposition swing bed (61) | DRG 470 ==
LOC: CANPRESDC → AMB 05:29 → MS 14:30
PROVIDERS: ADMIT Orthopaedic Surgery; ATTEND Nurse Practitioner Family
PROC: 0SRC0J9 Replacement of Right Knee Joint with Synthetic Substitute, Cemented, Open Approach (ICD-10-PCS; principal; 2016-12-28 10:30)
DX: M17.12 Unilateral primary osteoarthritis, left knee (principal); I42.1 Obstructive hypertrophic cardiomyopathy; G89.18 Other acute postprocedural pain; K21.9 Gastro-esophageal reflux disease without esophagitis; I11.9 Hypertensive heart disease without heart failure; Z96.651 Presence of right artificial knee joint; Z79.899 Other long term (current) drug therapy; Z91.02 Food additives allergy status

== ENCOUNTER 2017-01-02 17:04 | Inpatient (IN) | payer OTHER ==
[2017-01-02] MEDS ORDERED: MAGNESIUM HYDROXIDE 30 ML UD PO PRN (17:28)
[2017-01-02] MEDS ORDERED: ACETAMINOPHEN 500 MG TAB PO PRN (17:28)
[2017-01-02] MEDS ORDERED: SODIUM PHOS/BIPHOS ENEMA ADULT 133 ML BTTL PR PRN (17:28)
[2017-01-02] MEDS ORDERED: TEMAZEPAM 15 MG CAP PO PRN (17:28)
[2017-01-02] MEDS ORDERED: GABAPENTIN 300 MG CAP ONE (21:20)
[2017-01-02] MEDS: HYDROcodone 5MG/APAP 325MG 1 EA TAB PO PRN (21:22)
[2017-01-02] MEDS: GABAPENTIN 300 MG CAP PO SCH (21:22)
--- NOTE | 2017-01-02 21:26 | HP ---
SUPERVISING PHYSICIAN: Osvaldo Mcgrath M.D. CHIEF COMPLAINT: Swing Bed continuation of physical therapy and reconditioning for a total left knee arthroplasty. HISTORY OF PRESENT ILLNESS: Ms. Henry is a 71 year-old female patient that has a longstanding history of left knee pain that has been progressively worsening over the last several years. 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 Rivera Mustafa. She had had multiple attempts at outpatient conservative treatment measures such as injections, physical therapy, assistive devices and activity modification but has failed to respond to any conservative measures, thus surgical intervention was requested to help control her pain. The patient was followed in the postoperative phase and progressed fairly well through her physical therapy efforts, but continues to need aggressive physical therapy and reconditioning to ensure that she is able to function safely at home once discharged, therefore she is going to be admitted to Swing Bed for continuation of her physical therapy. PAST MEDICAL HISTORY: 1. Hypertension. 2. Gastroesophageal reflux disease. 3. Seasonal allergies. 4. Hypertrophic obstructive cardiomyopathy with no congestive heart failure with a history of 2/6 systolic ejection murmur currently followed by her golf course keeper, Dr. Quevedo. PAST SURGICAL HISTORY: 1. Recent left knee total arthroplasty on 12/28/16. 2. Right knee arthroplasty on 04/10/15. 3. section. 4. Echocardiogram on 01/01/15 showed a grade 1 diastolic dysfunction secondary to hypertrophic cardiomyopathy with an ejection fraction of 60%. CURRENT MEDICATIONS: Please see updated list of current medications in the electronic medical records. ALLERGIES: MERBROMIN, MERCURIC IODIDE AND RED DYE. FAMILY HISTORY: Coronary artery disease and chronic obstructive pulmonary disease. SOCIAL HISTORY: The patient has worked as a email designer. She lives in [place], [place] at [facility]. She denies any tobacco abuse and only drinks on a rare occasion. She denies any illicit drug use. PHYSICAL EXAMINATION: VITAL SIGNS: Temperature 97.6, pulse 66, blood pressure 115/82, respirations 17 , satting 98% on room air. Admission weight 102.0 kg. GENERAL: The patient is alert. She appears to be in no distress. She is actually participating with Physical Therapy today. HEENT: Tympanic membranes are clear bilaterally. Oropharynx is pink and moist without any lesions. NECK: Supple with normal range of motion. There is no jugular venous distention noted. CHEST: Lungs are clear to auscultation bilaterally with no rhonchi, with wheezing noted. CARDIOVASCULAR: Regular rate and rhythm with a 2/6 systolic murmur noted. ABDOMEN: Obese but soft, non-tender with positive bowel sounds. EXTREMITIES: Status post left knee with a postoperative knee dressing in place which is clean and dry. There are no obvious signs of infection. No edema. Pulses distally were strong. Capillary refill was brisk. NEUROLOGIC: She is alert and oriented times three. LABORATORY: No laboratory or x-ray studies on admission to Swing Bed. Her postoperative H&H during Acute Care showed hemoglobin 10.7, hematocrit 32.3. Will plan to repeat a hemoglobin on admission to Swing Bed. ASSESSMENT: 1. Postoperative day 4 left total knee arthroplasty with the patient having significant history of arthritis and having failed to respond to outpatient treatment plan and conservative measures requiring operative intervention for symptom control now requiring an extension of her physical therapy efforts through Swing Bed admission with Swing Bed day 1 today on admission. 2. Hypertension. 3. Gastroesophageal reflux disease. 4. History of hypertrophic cardiomyopathy with a systolic murmur, chronic with last echocardiogram noted to be on 01/11/17 with an ejection fraction estimated at 60%. PLAN: The patient will be admitted to Swing Bed today. Will continue to follow the patient closely along with orthopedic services and Physical Therapy as she progresses through continued physical therapy for reconditioning. Will continue to monitor the patient medically in regards to her hypertension. She will be started on Xarelto as per orthopedic protocol for knee replacement. Will anticipate her length of stay to be 3 to 7 days with anticipated discharge at this point this coming Monday. Until then, will continue to monitor the patient closely and treat appropriately. [facility][id number] [facility]
[2017-01-02] MEDS ORDERED: METOPROLOL SUCCINATE XL 25 MG TAB PO SCH (21:30)
[2017-01-03] MEDS: CYCLOBENZAPRINE HCL 10 MG TAB PO PRN ×2 (06:06→19:33)
[2017-01-03] MEDS ORDERED: NON-FORMULARY MEDICATION 1 EA MIS (Furosemide [Lasix] 20 MG) PO SCH (07:00)
[2017-01-03] MEDS ORDERED: METOPROLOL SUCCINATE XL 25 MG TAB PO ONE ×2 (07:37→19:15)
[2017-01-03] MEDS ORDERED: METOPROLOL SUCCINATE XL 100 MG TAB PO ONE ×2 (07:37→19:15)
[2017-01-03] MEDS: FUROSEMIDE 40 MG TAB PO SCH (09:00)
[2017-01-03] MEDS: DOCUSATE SODIUM 100 MG CAP PO SCH (09:00)
[2017-01-03] MEDS: METOPROLOL SUCCINATE 100 MG, METOPROLOL SUCCINATE 25 MG PO SCH ×4 (09:02→21:24)
[2017-01-03] MEDS: RIVAROXABAN 10 MG TAB PO SCH (09:07)
[2017-01-03] MEDS: HYDROcodone 5MG/APAP 325MG 1 EA TAB PO PRN ×2 (09:47→19:33)
--- NOTE | 2017-01-03 10:27 | RAD ---
EXAM DESCRIPTION: Ankle,Left 3 Views CLINICAL HISTORY: 71 years Female, pain left foor s/p TLK IMPRESSION: 3 views of the left ankle reveal soft tissue swelling about the ankle can be seen in soft tissues. Ankle mortise and syndesmosis are clear. No definitive fracture on today's study. Small calcaneal spur. Electronically signed by: Marko Worthington MD 01/03/2017 10:27 AM CDT
--- NOTE | 2017-01-03 10:30 | RAD ---
EXAM DESCRIPTION: Foot,Left 3 Views CLINICAL HISTORY: 71 years, Female, pain left foot s/p TLK COMPARISON: None TECHNIQUE: AP, lateral, and oblique views of the left foot FINDINGS: The bones are mildly degenerative with calcaneal spurring with incidental note of calcification along the posterior aspect of the plantar fascia on the lateral view. No fracture or dislocation is seen. No destructive process or malalignment seen. IMPRESSION: General changes and calcaneal spurring with some soft tissue calcification along the posterior aspect of the plantar fascia without acute injury. Electronically signed by: Eder Gallardo MD 01/03/2017 10:29 AM CDT
--- NOTE | 2017-01-03 19:00 | PCM.CORE ---
Physician DVT/VTE - Prophylaxis Currently: Patient already on anticoagulation therapy - xarelto - Nurse DVT Assessment & Total Each Risk Factor Represents 5 Points: Elective Arthtroplasty Each Risk Factor Represents 2 Points: Age 60-74 Each Risk Factor is 1 Point: Varicose Veins/Edema Legs DVT Assessment Score: 8 - 5 or more Very High Risk Treatments: Early Ambulation *, Sequential Compression Device
[2017-01-03] MEDS ORDERED: GABAPENTIN 300 MG CAP ONE (19:15)
[2017-01-03] MEDS: GABAPENTIN 300 MG CAP PO SCH (21:25)
[2017-01-04] MEDS: HYDROcodone 5MG/APAP 325MG 1 EA TAB PO PRN ×3 (04:47→20:32)
[2017-01-04] MEDS: FUROSEMIDE 40 MG TAB PO SCH (06:26)
[2017-01-04] MEDS ORDERED: METOPROLOL SUCCINATE XL 25 MG TAB PO ONE ×2 (08:33→20:46)
[2017-01-04] MEDS ORDERED: METOPROLOL SUCCINATE XL 100 MG TAB PO ONE ×2 (08:33→20:46)
--- NOTE | 2017-01-04 08:38 | PN ---
SUPERVISING PHYSICIAN: Ahmet Sharma MD DATE: 01/03/17 SUBJECTIVE: The patient is doing well on Swing Bed. She is making slow progress. She is having some difficulty walking and fully weight-bearing on the left leg due to ankle and foot pain. She denies any trauma, but there is some notable swelling and bruising. We will plan to do some x-rays today. She remains afebrile since on Swing Bed. OBJECTIVE: VITAL SIGNS: T-max 98.7. Pulse 69. Blood pressure 153/80. Respirations 18. Saturation 95% on room air. CHEST: Lungs clear to auscultation. HEART: Regular rate and rhythm. ABDOMEN: Soft, nontender. Positive bowel sounds. EXTREMITIES: Left knee shows dressing in place. It is mildly tender with very little erythema noted distally. Pulses are strong. Capillary refill brisk. There is some notable edema, nonpitting, around the ankle and foot with obvious tenderness on palpation over the medial aspect of the ankle with some very light ecchymosis. LABORATORY: On admission to Swing Bed, hemoglobin 9.1, hematocrit 27.7. RADIOLOGY: Left foot and ankle x-ray are pending. ASSESSMENT: 1. Postoperative day 5 left total knee arthroplasty with the patient having significant history of arthritis and having failed to respond to outpatient treatment plan and conservative measures requiring operative intervention for symptom control and now requiring an extension of her physical therapy efforts through Swing Bed admission, currently on day 2. 2. Hypertension. 3. Gastroesophageal reflux disease. 4. History of hypertrophic cardiomyopathy with a systolic murmur, chronic with last echocardiogram noted to be on 01/11/17 with an ejection fraction 60%. 5. Left foot and ankle pain with x-rays pending. PLAN: We will continue to follow the patient along with physical therapy as she progresses through Swing Bed. I have ordered x-rays on her left foot and ankle. We will control her pain with [place] and inform Dr. Mustafa of difficulty with her walking. We will hopefully be able to advance the patient's goals and she will meet those by Monday. Until then, we will continue to monitor the patient closely and treat appropriately. [facility][id number] [facility]
[2017-01-04] MEDS: RIVAROXABAN 10 MG TAB PO SCH (09:02)
[2017-01-04] MEDS: METOPROLOL SUCCINATE 100 MG, METOPROLOL SUCCINATE 25 MG PO SCH ×4 (09:02→21:21)
[2017-01-04] MEDS: DOCUSATE SODIUM 100 MG CAP PO SCH (09:02)
--- NOTE | 2017-01-04 10:08 | PN ---
DATE: 01/04/17 SUBJECTIVE: Ms. Henry is doing well. She is up in a chair and has already walked today. OBJECTIVE: Afebrile. Vital signs stable. Wound is clean. There are no signs or symptoms of infection. ASSESSMENT: Status post total knee arthroplasty. PLAN: The plan at this point is for her to continue with weight-bearing as tolerated and discharge when released by therapy. [facility][id number] [facility]
[2017-01-04] MEDS: CYCLOBENZAPRINE HCL 10 MG TAB PO PRN ×2 (13:53→22:26)
[2017-01-04] MEDS: GABAPENTIN 300 MG CAP PO SCH (21:22)
[2017-01-05] MEDS: FUROSEMIDE 40 MG TAB PO SCH (07:03)
[2017-01-05] MEDS: HYDROcodone 5MG/APAP 325MG 1 EA TAB PO PRN ×3 (07:03→21:43)
[2017-01-05 07:55] VITALS: BP 169/70; TEMP 98.2
[2017-01-05] MEDS ORDERED: METOPROLOL SUCCINATE XL 100 MG TAB PO ONE ×2 (08:33→19:55)
[2017-01-05] MEDS ORDERED: METOPROLOL SUCCINATE XL 25 MG TAB PO ONE ×2 (08:34→19:56)
[2017-01-05] MEDS: METOPROLOL SUCCINATE 100 MG, METOPROLOL SUCCINATE 25 MG PO SCH ×4 (08:46→21:31)
[2017-01-05] MEDS: DOCUSATE SODIUM 100 MG CAP PO SCH (08:47)
[2017-01-05] MEDS: RIVAROXABAN 10 MG TAB PO SCH (08:47)
[2017-01-05] MEDS: CYCLOBENZAPRINE HCL 10 MG TAB PO PRN ×2 (08:49→21:43)
[2017-01-05] MEDS: GABAPENTIN 300 MG CAP PO SCH (21:31)
[2017-01-06] MEDS: FUROSEMIDE 40 MG TAB PO SCH (06:21)
[2017-01-06] MEDS: HYDROcodone 5MG/APAP 325MG 1 EA TAB PO PRN ×2 (06:22→12:13)
[2017-01-06 09:16] VITALS: O2SAT 96
[2017-01-06] MEDS ORDERED: METOPROLOL SUCCINATE XL 100 MG TAB PO ONE (09:21)
[2017-01-06] MEDS ORDERED: METOPROLOL SUCCINATE XL 25 MG TAB PO ONE (09:22)
[2017-01-06] MEDS: METOPROLOL SUCCINATE 100 MG, METOPROLOL SUCCINATE 25 MG PO SCH ×2 (09:44)
[2017-01-06] MEDS: RIVAROXABAN 10 MG TAB PO SCH (09:44)
[2017-01-06] MEDS: DOCUSATE SODIUM 100 MG CAP PO SCH (09:45)
--- NOTE | 2017-01-06 11:26 | PN ---
DATE: 01/06/17 SUBJECTIVE: She is doing well and has no complaints today. OBJECTIVE: Vital signs stable, afebrile. Wound is clean. There are no signs or symptoms of infection. ASSESSMENT: Status post total knee arthroplasty. PLAN: The plant at this point is for her to be discharged either today or tomorrow with home health. [facility][id number] [facility]
--- NOTE | 2017-01-11 10:37 | DS ---
SUPERVISING PHYSICIAN: Ahmet Sharma MD DISCHARGE DIAGNOSIS: 1. Postoperative day 8 left total knee arthroplasty with the patient having significant history of arthritis and having failed to respond to outpatient treatment plan and conservative measures, requiring operative intervention for symptom control and then requiring Swing Bed admission for physical therapy and strengthening. 2. Hypertension. 3. Gastroesophageal reflux disease. 4. History of hypertrophic cardiomyopathy with a systolic murmur, chronic with last echocardiogram noted to be on 01/01/15 with an ejection fraction 60%. 5. Left foot and ankle pain. HISTORY OF PRESENT ILLNESS: This is a 71-year-old female patient who was originally admitted to the hospital on 12/28/16 for a left total knee arthroplasty per Dr. Rivera Mustafa, orthopedic surgeon. She had had a long history of left knee pain that had progressively worsened and after conservative measures, she enlisted Dr. Rivera Mustafa, orthopedic surgeon, for surgical intervention to help control her pain. 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 She did very well postoperatively and continued with her strengthening and conditioning through physical therapy. On postoperative day 4, it was felt that she would benefit from further strengthening and conditioning through Swing Bed admission. There were some concerns that she would not be able to function safely at home once discharged, so she was admitted to Swing Bed on 01/02/17. HOSPITAL COURSE: During her Swing Bed admission, she has progressed very nicely. She has met all the requirements through physical therapy. Dr. Mustafa has also followed her for orthopedic issues. At this point, she will be discharged home in stable condition. DISCHARGE PLAN: She is to resume her previous activity and also as per home health physical therapy. She has a followup appointment with Dr. Rivera Mustafa on 01/20/17. She is to resume her previous diet. She is to return to the hospital or call Dr. Mustafa's office for any further problems. DISCHARGE MEDICATIONS: 1. Metoprolol succinate. 2. Gabapentin. 3. Furosemide. 4. Cyclobenzaprine. 5. Hydrocodone. 6. Xarelto. Dr. Sharma is the collaborating physician and available for consultation. #[id number] [facility]
== END 2017-01-06 12:25 | disposition home health service (06) | DRG 560 ==
LOC: MS 17:04
PROVIDERS: ADMIT Nurse Practitioner Family; ATTEND Nurse Practitioner Acute Care
DX: Z47.1 Aftercare following joint replacement surgery (principal); I42.1 Obstructive hypertrophic cardiomyopathy; Z96.653 Presence of artificial knee joint, bilateral; I10 Essential (primary) hypertension; K21.9 Gastro-esophageal reflux disease without esophagitis; J30.2 Other seasonal allergic rhinitis; E66.9 Obesity, unspecified; Z88.8 Allergy status to other drugs, medicaments and biological substances; Z91.02 Food additives allergy status; Z68.34 Body mass index [BMI] 34.0-34.9, adult

== ENCOUNTER → 2017-11-23 | Outpatient (CLI) | payer OTHER ==
--- NOTE | 2017-11-23 16:44 | RAD ---
EXAM DESCRIPTION: Wrist,Right 3 Views CLINICAL HISTORY: 71 years, Female, WRIST PAIN COMPARISON: None FINDINGS: Right wrist 3 x-ray views is negative for fracture or dislocation. Carpal relationships are maintained. Distal radius and ulna appear intact. No fracture of the metacarpals. Advanced degenerative changes are seen in the lateral carpus with sclerosis and erosion and lateral subluxation of the base of the first metacarpal. Advanced degenerative changes with joint space narrowing, sclerosis and spurring noted at the first metacarpal phalangeal joint and at the interphalangeal joint of the thumb. Lesser degenerative narrowing of the other metacarpal phalangeal joints. Chondrocalcinosis of the triangular fibrocartilage is seen with degenerative spurring at the distal radial ulnar joint. Slight widening of the scapholunate distance. IMPRESSION: Arthritic changes as described. Electronically signed by: Estevan Serrato MD 11/23/2017 4:42 PM CDT
--- NOTE | 2017-11-23 16:46 | RAD ---
EXAM DESCRIPTION: Wrist,Left 3 Views CLINICAL HISTORY: 71 years, Female, WRIST PAIN COMPARISON: None FINDINGS: Left wrist 3 x-ray views is negative for fracture or dislocation. Carpal relationships are maintained. Distal radius and ulna appear intact. No fractures of the metacarpals. Advanced osteoarthritic changes of the lateral carpus are noted with mild lateral subluxation of the base of the first metacarpal and extensive spurring. Narrowing of the radiocarpal joint is seen. There is calcification of the triangular fibrocartilage. Small ossific densities are seen in the region of the proximal radiocarpal joint and lateral to the ulnar styloid which may be loose bodies. Advanced degenerative osteoarthrosis of the first metacarpal phalangeal joint and interphalangeal joint of the thumb. Periarticular calcification is seen near the third metacarpophalangeal joint. Mild degenerative narrowing of the PIPs of the third and fourth digits. IMPRESSION: Arthritic changes as described. Electronically signed by: Estevan Serrato MD 11/23/2017 4:44 PM CDT
== END ==
LOC: RAD 07:34
PROVIDERS: ATTEND Orthopaedic Surgery
DX: M25.531 Pain in right wrist (principal); M25.532 Pain in left wrist

== ENCOUNTER → 2018-01-08 | Outpatient (CLI) | payer OTHER | LOC: GMAB 14:38 | PROVIDERS: ATTEND Family Medicine | DX: N30.00 Acute cystitis without hematuria (principal); I10 Essential (primary) hypertension ==

== ENCOUNTER → 2018-01-24 | Outpatient (CLI) | payer OTHER | LOC: GMATM 18:09 | PROVIDERS: ATTEND Nurse Practitioner Family | DX: N30.00 Acute cystitis without hematuria (principal) ==

== ENCOUNTER → 2019-03-25 | Outpatient (CLI) | payer OTHER | LOC: LAB.O 10:31 | PROVIDERS: ATTEND Physician Assistant | DX: R19.7 Diarrhea, unspecified (principal) ==

== ENCOUNTER → 2019-04-16 | Outpatient (CLI) | payer MEDICARE | LOC: LAB.O 10:25 | PROVIDERS: ATTEND Family Medicine | DX: A04.72 Enterocolitis due to Clostridium difficile, not specified as recurrent (principal) ==

== ENCOUNTER → 2019-04-17 | Outpatient (CLI) | payer MEDICARE | LOC: GMAE 10:26 | PROVIDERS: ATTEND Family Medicine | DX: I10 Essential (primary) hypertension (principal) ==

== ENCOUNTER → 2019-09-03 | Outpatient (CLI) | payer MEDICARE ==
--- NOTE | 2019-09-03 16:20 | CT ---
EXAM DESCRIPTION: Abdoment/Pelvis w/o Contrast CLINICAL HISTORY: 73 years Female, COLITIS COMPARISON: None available. TECHNIQUE: Contiguous 3 mm axial images were obtained from the lung bases to the level of the proximal femora without the administration of intravenous or oral contrast. Sagittal and coronal reconstructions were reviewed. FINDINGS: Limited evaluation of the solid organs due to the lack of intravenous contrast. THORAX: Mild atelectasis of the right lower lobe. LIVER: The liver demonstrates normal size and density with no intrahepatic biliary ductal dilatation. GALLBLADDER: Few gallstones are identified. PANCREAS: Appears normal with no cystic or solid lesions. SPLEEN: Normal ADRENAL GLANDS: Normal with no nodules or masses. KIDNEYS: Both kidneys are symmetric in size and contour with no hydronephrosis or nephrolithiasis or perinephric fluid collections. The visualized ureters appear grossly unremarkable. STOMACH: The stomach is well-distended with no gross abnormality. SMALL BOWEL: The small bowel loops demonstrate variable degrees of distention with no abnormal dilatation or other signs to suggest bowel obstruction. LARGE BOWEL: Few diverticuli are noted throughout the visualized colon. The appendix is well-visualized and appears normal No evidence of free intraperitoneal air or fluid. RETROPERITONEUM: The abdominal aorta is nonaneurysmal with mild to moderate atherosclerosis. The inferior vena cava is normal in size and caliber. No abnormally enlarged retroperitoneal lymph nodes are identified. URINARY BLADDER: Mildly distended with no gross intraluminal abnormality. Contour abnormality along the left side of the body of the uterus is concerning for an underlying fibroid. Bilateral adnexa appear normal. ADDITIONAL FINDINGS: Fat-containing bilateral inguinal hernias, larger on the left side. BONES: Moderate to severe degenerative changes are identified in the visualized bones.No evidence of osteophytic or osteoblastic lesions. IMPRESSION: 1. No acute intra-abdominal or intrapelvic process. 2. Cholelithiasis. 3. Scattered colonic diverticulosis. 4. Contour abnormality along the left side of the body of the uterus is concerning for an underlying fibroid. This exam was performed according to our departmental dose-optimization program, which includes automated exposure control, adjustment of the mA and/or kV according to patient size and/or use of iterative reconstruction technique. Electronically signed by: Christianne Greenberg MD 09/03/2019 4:19 PM [employer]TERN CH[employer]KER SUPERVISOR
--- NOTE | 2019-09-03 16:48 | MRI ---
EXAM DESCRIPTION: Lumbar Spine w/o Contrast CLINICAL HISTORY: 73 years Female, RADICULOPATHY COMPARISON: None available. TECHNIQUE: Multiplanar multiecho imaging of the lumbar spine was performed without intravenous contrast administration. FINDINGS: Scoliosis of the lumbar spine. The vertebral body heights are well-maintained with no acute compression deformity. Multilevel intervertebral disc space narrowing is noted. The conus medullaris terminates at L1-L2 intervertebral disc space. The visualized spinal cord demonstrates no signal abnormality. L1-L2: 2 mm retrolisthesis of L1 over L2. 4 mm diffuse disc bulge and facet arthropathy with no canal stenosis. Mild right and moderate left neural foraminal narrowing is noted. L2-L3: Disc desiccation and loss of disc height. 3 mm diffuse disc bulge and facet arthropathy with no significant central canal stenosis. Severe left lateral recess narrowing is noted. Mild right and severe left neural foraminal narrowing is also present. L3-L4: Disc desiccation and loss of disc height. 6 mm posterior disc osteophyte complex and facet arthropathy with resultant severe central canal stenosis with the thecal sac measures 6 mm. Severe bilateral neural foraminal narrowing is also noted. L4-L5: 5 mm posterior disc bulge and facet arthropathy with resultant moderate central canal stenosis with the thecal sac measures 8 mm. Severe right and moderate left neural foraminal narrowing is noted secondary to facet arthropathy. L5-S1: 5 mm posterior disc bulge, ligamentum flavum hypertrophy and facet arthropathy with resultant moderate to severe central canal stenosis with the thecal sac measures 6 mm. Moderate to severe right and severe left neural foraminal narrowing is also identified. The visualized prevertebral and paravertebral soft tissues appear unremarkable. IMPRESSION: Multilevel degenerative disc disease, ligamentum flavum hypertrophy and facet arthropathy throughout the lumbar spine with changes worse from L3-L4 through L5-S1 levels. Electronically signed by: Christianne Greenberg MD 09/03/2019 4:46 PM [employer]INT SUPPORT SPECIALIST
== END ==
LOC: MRI 13:48
PROVIDERS: ATTEND Family Medicine
DX: N15.1 Renal and perinephric abscess (principal); K52.9 Noninfective gastroenteritis and colitis, unspecified; K80.20 Calculus of gallbladder without cholecystitis without obstruction; N32.9 Bladder disorder, unspecified; K57.30 Diverticulosis of large intestine without perforation or abscess without bleeding; M51.16 Intervertebral disc disorders with radiculopathy, lumbar region; M46.96 Unspecified inflammatory spondylopathy, lumbar region

== ENCOUNTER → 2019-09-12 | Outpatient (CLI) | payer MEDICARE | LOC: GMAE 21:48 | PROVIDERS: ATTEND Family Medicine | DX: M25.561 Pain in right knee (principal); G25.81 Restless legs syndrome ==

== ENCOUNTER → 2020-02-03 | Outpatient (CLI) | payer MEDICARE | LOC: GMAE 11:20 | PROVIDERS: ATTEND Family Medicine | DX: I48.0 Paroxysmal atrial fibrillation (principal); N39.0 Urinary tract infection, site not specified ==

== ENCOUNTER → 2020-02-25 | Outpatient (CLI) | payer MEDICARE | LOC: GMAE 10:30 | PROVIDERS: ATTEND Family Medicine | DX: E87.6 Hypokalemia (principal); E83.42 Hypomagnesemia; I50.32 Chronic diastolic (congestive) heart failure; R30.0 Dysuria ==

== ENCOUNTER → 2020-08-25 | Outpatient (CLI) | payer MEDICARE | LOC: GMAE 10:13 | PROVIDERS: ATTEND Family Medicine | DX: I10 Essential (primary) hypertension (principal) ==